=== PATIENT | female | born 1980 | race Two or more races ===

== ENCOUNTER 2023-05-24 09:53 | Day surgery (SDC) | payer OTHER ==
[~2023-05-24] VITALS: Ht 175.3 cm; Wt 68.0 kg
[~2023-05-24 09:53] MED LIST: DOXY-286 PO
[2023-05-24] MEDS ORDERED: ceFAZolin 1GM/50ML 100 ML IV ONE (10:14)
[2023-05-24] MEDS ORDERED: ROCURONIUM 10MG/ML 10ML VIAL IV ONE (12:15)
[2023-05-24] MEDS ORDERED: GLYCOPYRROLATE 0.2 MG/ML 1ML VIAL ONE (12:15)
[2023-05-24] MEDS ORDERED: ONDANSETRON HCL 4 MG/2 ML VIAL ONE ×2 (12:15→16:06)
[2023-05-24] MEDS ORDERED: MEPERIDINE HCL (25 MG/ML) 1ML VIAL ONE (12:15)
[2023-05-24] MEDS ORDERED: NEOSTIGMINE 1 MG/ML INJ (10mg/10ML VIAL) ONE (12:15)
[2023-05-24] MEDS ORDERED: SODIUM CHLORIDE LOCK 10 ML ONE (12:15)
[2023-05-24] MEDS ORDERED: MIDAZOLAM HCL 2MG/2ML 2ml VIAL (1mg/ml) ONE (12:15)
[2023-05-24] MEDS ORDERED: fentaNYL CITRATE 100 MCG/2 ML VL ONE ×2 (12:15→12:17)
[2023-05-24] MEDS ORDERED: METOCLOPRAMIDE HCL 5MG/ml INJ 2ml VIAL IV PRN (13:15)
[2023-05-24] MEDS ORDERED: MORPHINE SULFATE INJ 2 MG/ml SYRG IV PRN (13:15)
[2023-05-24] MEDS ORDERED: HYDROmorphone HCL 2 MG/ML VL/or syr IV PRN (13:15)
[2023-05-24] MEDS ORDERED: BUPIVACAINE HCL 0.25% P/F 10 ML VIAL ONE (13:17)
[2023-05-24] MEDS ORDERED: LIDOCAINE W/ EPINEPHRINE 1% 20ML VIAL ONE (13:17)
[2023-05-24] MEDS ORDERED: SUGAMMADEX 200mg/2ml Vial (100MG/ML) IV ONE (14:23)
[2023-05-24] MEDS ORDERED: KETOROLAC TROMETH 60MG/2ML VIAL ONE (14:23)
[2023-05-24 14:52] VITALS: PULSE 87; RESP 15; O2SAT 96
[2023-05-24] MEDS: HYDROmorphone HCL 2 MG/ML VL/or syr IV PRN ×3 (15:43→16:10)
[2023-05-24] MEDS ORDERED: METOCLOPRAMIDE HCL 5MG/ml INJ 2ml VIAL IV ONE (17:00)
[2023-05-24 17:40] VITALS: BP 110/68; PULSE 60; RESP 10; O2SAT 100
== END 2023-05-24 18:02 | disposition home or self-care (01) ==
LOC: SUR 09:53
PROVIDERS: ATTEND Obstetrics & Gynecology
DX: Z30.2 Encounter for sterilization (principal); N83.292 Other ovarian cyst, left side; N83.291 Other ovarian cyst, right side; R10.2 Pelvic and perineal pain; N73.6 Female pelvic peritoneal adhesions (postinfective); N94.89 Other specified conditions associated with female genital organs and menstrual cycle
CPT/HCPCS: 58661; 58662; 81025; 86850; 86900; 86901; 88307; J0690; J1170; J1885; J2175; J2250; J2405; J2765; J3010; J3490